=== PATIENT | male | born 1960 | race Caucasian/White ===

== ENCOUNTER → 2016-10-26 | Outpatient (CLI) | payer BC | END | disposition home or self-care (01) | LOC: LABWHC1 15:22 | PROVIDERS: ATTEND Family Medicine | DX: R10.84 Generalized abdominal pain (principal); R53.83 Other fatigue; N40.0 Benign prostatic hyperplasia without lower urinary tract symptoms; E03.8 Other specified hypothyroidism; H93.19 Tinnitus, unspecified ear | CPT/HCPCS: 36415; 84439; 84443; 84481 ==

== ENCOUNTER → 2017-03-23 | Outpatient (CLI) | payer BC ==
[2017-03-23 14:48] LABS: Basophils # (A) 0.1 k/uL (0-0.2); Basophils % (A) 1 %; CH 29.6; CHCM 34.5; Eosinophils # (A) 0.1 k/uL (0-0.7); Eosinophils % (A) 1 %; HCT 46.6 % (39.0-53.0); HDW 2.33; HGB 15.7 gm/dL (13.0-17.5); Luc # (Auto) 0.12; Luc % (Auto) 1; Lymphocytes # (A) 1.3 k/uL (1.0-4.8); Lymphocytes % (A) 14 %; MCH 29.1 pg (25.0-35.0); MCHC 33.7 g/dL (31.0-37.0); MCV 86.2 fL (80.0-100.0); Mean Platelet Volume 7.9; Monocytes # (A) 0.5 k/uL (0-1.0); Monocytes % (A) 5 %; Neutrophils # (A) 6.9 k/uL (1.3-7.7); Neutrophils % (A) 78 %; RDW 14.2 % (11.5-15.5); WBC 8.9 k/uL (3.8-10.6); WBC (Perox) 8.53
[2017-03-23 15:02] LABS: ALT 41 U/L (21-72); AST 29 U/L (17-59); Alkaline Phosphatase 67 U/L (38-126); Anion Gap 9 mmol/L; Blood Urea Nitrogen 20 mg/dL (9-20); Calcium 9.9 mg/dL (8.4-10.2); Carbon Dioxide 29 mmol/L (22-30); Chloride 103 mmol/L (98-107); Glucose 88 mg/dL (74-99); Non-African American GFR(MDRD) >60 (>60 ml/min/1.73 sqM); Potassium 4.7 mmol/L (3.5-5.1); Sodium 141 mmol/L (137-145); Total Bilirubin 0.9 mg/dL (0.2-1.3); Total Protein 7.2 g/dL (6.3-8.2)
[2017-03-23 20:45] LABS: Hemoglobin A1C 5.7 % (4.2-6.1)
[2017-03-24 05:57] LABS: EBV - EA (IgG) <5.0 U/mL (<9.0); EBV - EBNA (IgG) 37.8 U/mL (<18.0); EBV - VCA IgM <10.0 U/mL (<36.0)
== END | disposition home or self-care (01) ==
LOC: LABWHC1 13:42
PROVIDERS: ATTEND Family Medicine
DX: N40.0 Benign prostatic hyperplasia without lower urinary tract symptoms (principal); R10.84 Generalized abdominal pain; R53.83 Other fatigue; E03.8 Other specified hypothyroidism; H93.19 Tinnitus, unspecified ear; E72.12 Methylenetetrahydrofolate reductase deficiency; E53.9 Vitamin B deficiency, unspecified
CPT/HCPCS: 36415; 80053; 82306; 83036; 84439; 84443; 84481; 85025; 86141; 86663; 86664; 86665

== ENCOUNTER → 2018-08-24 | Outpatient (CLI) | payer BC ==
--- NOTE | 2018-08-26 17:07 | MR ---
EXAMINATION TYPE: MR brain and iac wo/w con DATE OF EXAM: 08/24/2018 COMPARISON: NONE HISTORY: Jason Hearing loss TECHNIQUE: Multiplanar, multisequence images of the brain and brainstem including internal auditory canals are a ll performed without and with IV contrast, utilizing 10 mL intravenous Gadavist . FINDINGS: Diffusion weighted images demonstrate no evidence of a recent infarct or other diffusion ab normality. There is no worrisome extra-axial fluid collection or significant white matter changes. T here is mild ventricular and sulcal prominence consistent with mild to minimal diffuse age-related ce rebral atrophy. Midline structures demonstrate normal morphology. The craniocervical junction appears within normal limits. Post contrast images demonstrate no abnormal enhancement. The dural venous sinuses appear pa tent. The visualized sinuses are clear and the globes are intact. Nasal septum is slightly deviated t o right of midline. No suspicious fluid signal is seen in mastoid air cells bilaterally. Severe low cochlear complexes ar e symmetric and felt within normal limits. No suspicious enhancing cerebellopontine angle mass is gilma ntified bilaterally. IMPRESSION: No significant finding is seen to account for patient's symptoms of bilateral hearing los s.
== END | disposition home or self-care (01) ==
LOC: RADMRIMAIN 13:09
PROVIDERS: ATTEND Family Medicine
DX: H91.90 Unspecified hearing loss, unspecified ear (principal)
CPT/HCPCS: 70553; A9585

== ENCOUNTER → 2019-05-16 | Outpatient (CLI) | payer BC ==
--- NOTE | 2019-05-16 08:27 | US ---
EXAMINATION TYPE: US prostate transrectal DATE OF EXAM: 05/16/2019 COMPARISON: NONE CLINICAL HISTORY: R97.20 elevated PSA. Elevated PSA, weak, restricted urine stream This examination was performed using the transrectal probe. EXAM MEASUREMENTS: Gland Size: 5.4 x 3.3 x 5.1cm Volume: 47.6ml Predicted PSA: 5.7 Actual PSA (if available):7.0 From July 2018 Enlarged, mildly heterogeneous gland without any definite lesions seen at this time. Initial images show seminal vesicles appear within normal limits. Prostate gland is heterogeneous yuri earance and enlarged in size without suspicious hypoechoic nodule identified. IMPRESSION: Findings consistent with BPH as detailed above. One may consider ultrasound-guided rando m sampling or prostate MRI due to actual PSA being slightly out of proportion to predicted PSA based on gland size. Advise urology referral to assess. Predicted PSA = volume x 0.12 ng/ml Calculated Volume = 0.5236 x L x W x H
== END | disposition home or self-care (01) ==
LOC: RADUSWWP 07:24
PROVIDERS: ATTEND Family Medicine
DX: R97.20 Elevated prostate specific antigen [PSA] (principal)
CPT/HCPCS: 76872

== ENCOUNTER 2021-02-02 21:46 | Emergency (ER) | payer BC ==
[2021-02-02 22:04] VITALS: PULSE 62; TEMP 98.2
--- NOTE | 2021-02-02 22:38 | ED ---
Skin/Abscess/FB HPI - General Chief complaint: Skin/Abscess/Foreign Body Stated complaint: swelling in L leg Time Seen by Provider: 02/02/21 22:15 Source: patient Mode of arrival: ambulatory Limitations: no limitations - History of Present Illness Initial comments: 60-year-old male presents to the emergency department with a chief complaint of left redness and swelling. Patient reports he believes that he may have been bitten by an insect earlier today which may have caused him to be developing swelling in the left ankle. Patient reports he denies any injuries to the ankle bur states there is swelling in the region and is going slight approximately. States she also developed overlying cellulitic skin changes in that not have been progressing to the calf. He denies any fevers or chills. Patient is concerned for a blood clot. No history of blood clots. - Related Data Home Medications Medication Instructions Recorded Confirmed diphenhydrAMINE HCL [Benadryl] 25 mg PO ONCE PRN 02/02/21 02/02/21 Allergies Allergy/AdvReac Type Severity Reaction Status Date / Time No Known Allergies Allergy Verified 02/02/21 22:45 Review of Systems ROS Statement: Those systems with pertinent positive or pertinent negative responses have been documented in the HPI. ROS Other: All systems not noted in ROS Statement are negative. Past Medical History Additional Past Medical History / Comment(s): DIFFICULTY SWALLOWING, STOMACH IRRITATION History of Any Multi-Drug Resistant Organisms: None Reported Past Surgical History: Joint Replacement, Orthopedic Surgery Additional Past Surgical History / Comment(s): CLARA JOINT KNEE, RETINAL DETACHMENT SX RIGHT EYE, rt shoulder Past Anesthesia/Blood Transfusion Reactions: No Reported Reaction Past Psychological History: No Psychological Hx Reported Smoking Status: Never smoker Past Alcohol Use History: Occasional Past Drug Use History: None Reported - Past Family History Sister(s) Family Medical History: Cancer Additional Family Medical History / Comment(s): TYROID General Exam Limitations: no limitations General appearance: alert, in no apparent distress Head exam: Present: atraumatic, normocephalic, normal inspection Eye exam: Present: normal appearance, PERRL, EOMI Pupils: Present: normal accommodation ENT exam: Present: normal exam, normal oropharynx, mucous membranes moist Neck exam: Present: normal inspection, full ROM. Absent: tenderness, lymphadenopathy Respiratory exam: Present: normal lung sounds bilaterally. Absent: respiratory distress Cardiovascular Exam: Present: regular rate, normal rhythm, normal heart sounds. Absent: systolic murmur Extremities exam: Present: full ROM (Full range of motion left ankle), tenderness (No tenderness over the ankle), normal capillary refill, pedal edema (+1 nonpitting edema left lower extremity), calf tenderness (Mild left calf tenderness), other (Palpable DP and PT bilaterally). Absent: normal inspection (Overlying cellulitic skin changes in the lateral aspect of the left ankle and the calf), joint swelling Back exam: Present: normal inspection, full ROM Neurological exam: Present: alert, altered, normal gait Psychiatric exam: Present: normal affect, normal mood Skin exam: Present: warm, dry, intact, normal color Course Vital Signs 02/02/21 22:01 Temperature 98.2 F Pulse Rate 62 Respiratory 20 Rate Blood Pressure 163/100 O2 Sat by Pulse 98 Oximetry Medical Decision Making - Medical Decision Making 60-year-old male presents to the emergency department with a chief complaint of left redness and swelling. On physical examination, patient likely has cellulitis. Vital signs are within normal limits. Ultrasound is negative for DVT. Patient will be started on Keflex. Return parameters were discussed patient is an attending agreeable. Case discussed with Disposition Clinical Impression: Cellulitis Disposition: HOME SELF-CARE Condition: Stable Instructions (If sedation given, give patient instructions): Cellulitis (ED) Additional Instructions: Please return to the Emergency Department if symptoms worsen or any other co ncerns. Is patient prescribed a controlled substance at d/c from ED?: No Referrals: Randolph Coffey MD [Primary Care Provider] - 1-2 days Time of Disposition: 23:51
--- NOTE | 2021-02-02 23:38 | US ---
EXAMINATION TYPE: US venous doppler duplex LE LT DATE OF EXAM: 02/02/2021 11:30 PM COMPARISON: NONE CLINICAL HISTORY: r/o dvt. Redness and swelling. No hx of DVT. Patient does not take blood thinners. Hx left knee replacement. SIDE PERFORMED: TECHNIQUE: The lower extremity deep venous system is examined utilizing real time linear array sonog jd with graded compression, doppler sonography and color-flow sonography. VESSELS IMAGED: Common Femoral Vein Deep Femoral Vein Greater Saphenous Vein * Femoral Vein Popliteal Vein Small Saphenous Vein * Proximal Calf Veins (* superficial vessels) Left Leg: No evidence of DVT in veins imaged at this time. IMPRESSION: No sign of deep vein thrombosis in the left leg.
[2021-02-02] MEDS ORDERED: CEPHALEXIN 500MG STARTER PACK 4 CAP BTL PO STA (23:52)
[2021-02-03 00:05] VITALS: BP 150/79; RESP 18
== END 2021-02-03 00:05 | disposition home or self-care (01) ==
LOC: EC 21:46
DX: L03.116 Cellulitis of left lower limb (principal)
CPT/HCPCS: 99283; 99284

== ENCOUNTER 2021-11-20 07:22 | Day surgery (SDC) | payer BC ==
[2021-11-18 14:31] VITALS: BMI 25.7
[~2021-11-20 07:22] MED LIST: LACTATED RINGERS 1,000 ML IV SCH
[2021-11-20 07:49] VITALS: TEMP 97.4
[2021-11-20] MEDS ORDERED: LIDOCAINE 2% INJ 20 MG/ML (2 ML VIAL) ONE (08:26)
[2021-11-20] MEDS ORDERED: PROPOFOL 10 MG/ML 20 ML VIAL IV ONE (08:26)
--- NOTE | 2021-11-20 08:47 | P.PCN ---
Date of Procedure: 11/20/21 Procedure(s) Performed: Brief history: Patient is a pleasant 61-year-old white female scheduled for an elective upper endoscopy as well as colonoscopy as a part of evaluation of epigastric discomfort and change in bowel habits for the last several months duration. Procedure performed: Esophagogastroduodenoscopy with biopsy Colonoscopy with biopsy Preoperative diagnosis: Epigastric pain Change in bowel habits Anesthesia: MAC Procedure: After informed consent was obtained from the patient was brought into the endoscopy unit and IV sedation was administered by anesthesia under continuous monitoring. Initially upper endoscopy was done. The Olympus GF 160 video endoscope was inserted inserted into the mouth and esophagus intubated without any difficulty and was gradually advanced into the stomach and duodenum and carefully examined. The bulb and second part of the duodenum appeared normal. Abscesses were done from the duodenum to rule out celiac disease. The scope was then withdrawn into the stomach adequately insufflated with air and upon careful examination the antrum had mild patchy areas of erythema which was biopsied. The body, cardia and fundus appeared normal. The scope was then withdrawn into the esophagus. The GE junction was located at 40 cm to the incisors. It appea red regular with no erythema erosions or ulcerations. Rest of the esophagus appeared normal. Patient tolerated the procedure well. At this time the patient continued to remain sedation. Initial digital rectal examination was normal. Olympus CF 160 video colonoscope was then inserted into the rectum and gradually advanced to the cecum without any difficulty. Careful examination was performed as the scope was gradually being withdrawn. The prep was excellent. The cecum, ascending colon, transverse colon, descending colon, sigmoid colon and rectum appeared normal. Recommend a 3 mm sessile polyp removed by cold biopsy. Retroflexion was performed in the rectum and monitor hemorrhoids were noted. Patient tolerated the procedure well. Impression: 1. Upper endoscopy revealed mild antral gastritis but no evidence of esophagitis or peptic ulcer disease 2. Colonoscopy revealed a 3 mm rectal polyp and small internal hemorrhoids Recommendations: Findings of this examination were discussed with the patient as well as his family. He was advised to follow with the biopsy results. He can have a repeat colonoscopy in in 5 years from now because of the colon polyps .
[2021-11-20 09:14] VITALS: BP 121/71; PULSE 60; RESP 17
== END 2021-11-20 09:25 | disposition home or self-care (01) ==
LOC: ORWHC2ENDO 07:22
PROVIDERS: ATTEND Internal Medicine Gastroenterology
DX: K62.1 Rectal polyp (principal); K64.8 Other hemorrhoids; R19.4 Change in bowel habit; K21.9 Gastro-esophageal reflux disease without esophagitis; K29.50 Unspecified chronic gastritis without bleeding; R13.10 Dysphagia, unspecified; Z96.653 Presence of artificial knee joint, bilateral; Z98.890 Other specified postprocedural states
CPT/HCPCS: 88305; 45380; 43239; J2704; J2001

== ENCOUNTER → 2022-11-01 | Outpatient (CLI) | payer BC ==
--- NOTE | 2022-11-01 19:48 | CT ---
EXAMINATION TYPE: CT abdomen pelvis w con DATE OF EXAM: 11/01/2022 COMPARISON: None HISTORY: Generalized abdominal pain CT DLP: 1459 mGycm CONTRAST: CT scan of the abdomen and pelvis is performed with Oral Contrast and with IV Contrast, patient injec estuardo with 100cc mL of Isovue 300. FINDINGS: LUNG BASES-: No visible nodule. No infiltrate. LIVER/GB: No calcified gallstones. No space occupying hepatic lesion. Biliary tree is of normal ca liber. PANCREAS: No inflammation. No distinct mass. SPLEEN: No splenic enlargement. No lesion seen. ADRENALS: No nodule. No thickening. KIDNEYS/BLADDER: No hydronephrosis. No nephrolithiasis. No distinct renal mass. Urinary bladder g rossly unremarkable. BOWEL: Normal appendix. Normal bowel caliber. No inflammation. GENITAL ORGANS: No gross abnormality. LYMPH NODES: No greater than 1cm abdominal or pelvic lymph nodes are appreciated. AORTA: No significant abnormality. OSSEOUS STRUCTURES: No significant abnormality is seen. OTHER: No significant additional abnormality is seen. IMPRESSION: 1. No significant abnormality
== END | disposition home or self-care (01) ==
LOC: RADCTMAIN 15:50
PROVIDERS: ATTEND Family Medicine
DX: R10.84 Generalized abdominal pain (principal)
CPT/HCPCS: 74177; Q9967

== ENCOUNTER → 2022-11-20 | Outpatient (CLI) | payer BC ==
--- NOTE | 2022-11-20 16:09 | MR ---
EXAMINATION TYPE: MR Prostate wo/w con DATE OF EXAM: 11/20/2022 8:53 AM COMPARISON: CT 11/11/2022. CLINICAL INDICATION:Male, 62 years old with history of R97.20; TECHNIQUE: Multi-planar, multi-sequence imaging of the pelvis is performed prior to and following the uncomplicated administration of bolus intravenous gadolinium. CONTRAST: 8 Gadavist Interpretive Criteria: PI-RADS v2.1 SERUM PSA: 8.4 on 10/07/2022. SURGICAL PATHOLOGY: Benign biopsy 06/22/2016 FINDINGS: Prostatic dimensions: 5.5 x 4.0 x 5.5 cm. Ellipsoid Volume:63.36 (PSA density=0.13 ng/mL/mL) CENTRAL GLAND (Central and Transition Zones/CZ+TZ): Small focus of restricted diffusion within the right central gland mid gland measuring 7 x 5 mm. The lesion is in close proximity to the prostatic urethra. (PI-RADS 4) PERIPHERAL ZONE (PZ): No evidence of masslike abnormality, or localized perfusional hypervascularity, to further suggest a focus of clinically significant prostate cancer. (PI-RADS 2) SEMINAL VESICLES (SV): Symmetric and unremarkable. PERIPROSTATIC TISSUES: Unremarkable. LYMPH NODES: Right common iliac lymph node may be present measuring 7 mm in short axis series 201 image 30. REMAINING PELVIS: Bladder wall is within normal limits given distention. No abnormal free or organized intrapelvic fluid collection. No pathologic bowel dilation or mural thickening. OSSEOUS STRUCTURES: No suspicious osseous abnormality. There is a moderate right hip joint effusion. There is suspected a nterior superior labral tear on the right. IMPRESSION: 1. PI-RADS score: 4 lesion right mid central gland measuring 7 x 5 mm. The lesion is in close proximi ty to the prostatic urethra. 2. Moderate BPH, estimated gland volume 63.36 mL. 3. Single prominent right common iliac lymph node. 4.Moderate right hip joint effusion with suspected underlying labral pathology. Consider dedicated MRI right hip arthrogram for complete evaluation.
== END | disposition home or self-care (01) ==
LOC: RADMRIMAIN 07:36
PROVIDERS: ATTEND Urology
DX: N40.0 Benign prostatic hyperplasia without lower urinary tract symptoms (principal); M25.451 Effusion, right hip; N28.9 Disorder of kidney and ureter, unspecified; R97.20 Elevated prostate specific antigen [PSA]
CPT/HCPCS: 72197; A9585

== ENCOUNTER → 2022-12-13 | Outpatient (CLI) | payer BC ==
[2022-12-13 15:45] LABS: Basophils # (A) 0.04 X 10*3/uL (0.00-0.10); Basophils % (A) 0.8 %; Eosinophils # (A) 0.06 X 10*3/uL (0.04-0.35); Eosinophils % (A) 1.2 %; HCT 45.5 % (39.6-50.0); Immature Grans, Automated 0.2 %; Lymphocytes # (A) 1.54 X 10*3/uL (0.90-5.00); Lymphocytes % (A) 30.2 %; MCH 28.6 pg (27.0-32.0); MCV 86.7 fL (80.0-97.0); Mean Platelet Volume 10.4 fL (9.5-12.2); Monocytes % (A) 9.8 %; NRBC Per 100 WBC 0 /100 WBCS (0.0-0.0); Neutrophils # (A) 2.95 X 10*3/uL (1.80-7.70); Neutrophils % (A) 57.8 %; Platelet Count 249 X 10*3/uL (140-440); RBC 5.25 X 10*6/uL (4.40-5.60); RDW 13.1 % (11.5-14.5)
== END | disposition home or self-care (01) ==
LOC: LABPAT 10:30
PROVIDERS: ATTEND Urology
DX: Z01.812 Encounter for preprocedural laboratory examination (principal); R97.20 Elevated prostate specific antigen [PSA]
CPT/HCPCS: 85025

== ENCOUNTER 2022-12-16 15:05 | Day surgery (SDC) | payer BC ==
[2022-12-13 15:50] VITALS: BMI 25.0
--- NOTE | 2022-12-15 22:24 | P.GSHP ---
History of Present Illness H&P Date: 12/15/22 Chief Complaint: Elevated PSA level The patient is a 62-year-old white male with no family history of prostate cancer. His PSA level has been persistently elevated. He underwent a prostate ultrasound with biopsies in 2015, showing no evidence of malignancy. The prostate volume at that time was 42 mL. The most recent PSA level was 8.40 in September 2022. MRI of the prostate revealed a prostate volume of 63.4 mL, with a PI-RADS 4 lesion involving the right central zone. Past Medical History Additional Past Medical History / Comment(s): enlarged prostate, elevated psa, states lesion on prostate. History of Any Multi-Drug Resistant Organisms: None Reported Past Surgical History: Joint Replacement, Orthopedic Surgery Additional Past Surgical History / Comment(s): BILAT TKA, RETINAL DETACHMENT SX RIGHT EYE, rt shoulder SX, COLONOSCOPY Past Anesthesia/Blood Transfusion Reactions: No Reported Reaction Past Psychological History: No Psychological Hx Reported Smoking Status: Never smoker Past Alcohol Use History: Occasional Past Drug Use History: None Reported - Past Family History Sister(s) Family Medical History: Cancer Additional Family Medical History / Comment(s): THYROID CANCER Medications and Allergies Home Medications Medication Instructions Recorded Confirmed Type Multivitamins, Thera [Multivitamin 1 tab PO DAILY 12/13/22 12/13/22 History (formulary)] [place]-3/Dha/Epa/Fish Oil [Fish Oil 1 each PO DAILY 12/13/22 12/13/22 History 1,000 mg Softgel] Vitamin B (Unknown Dose) 1 dose PO DAILY 12/13/22 History Vitamin D (Unknown Dose) 1 dose PO DAILY 12/13/22 History Allergies Allergy/AdvReac Type Severity Reaction Status Date / Time No Known Allergies Allergy Verified 12/13/22 15:50 Surgical - Exam - General well developed, well nourished, no distress - Neck no masses, trachea midline - Respiratory normal respiratory effort - Abdomen Abdomen: soft, non tender, no guarding, no rigid, no rebound - Genitourinary normal penis with no external lesions, testicles non-tender - Rectum Rectum: normal sphincter tone, no masses, other (Prostate moderately enlarged but smooth) - Psychiatric oriented to time, oriented to person, oriented to place, speech is normal, memory intact Assessment and Plan (1) Elevated prostate specific antigen [PSA] Status: Acute Code(s): R97.20 - ELEVATED PROSTATE SPECIFIC ANTIGEN [PSA] SNOMED Code(s): 645307316 Plan: MRI ultrasound fusion biopsy of the prostate. The procedure then reviewed in detail with the patient. He is aware of potential risks, which include anesthesia, bleeding, and infection.
[~2022-12-16 15:05] MED LIST changes: +DEXAMETHASONE SOD PHOSPHATE 4 MG/ML 1 ML VIAL IV ONE; +GENTAMICIN 120 MG in SODIUM CHLORIDE 0.9% 100 ML IVPB PRN; +HYDROmorphone 0.5 MG/0.5 ML SYRINGE IVP PRN; +LIDOCAINE 1% (10MG/ML) FOR IV START INTRADERMA PRN; +MIDAZOLAM 2 MG/2 ML VIAL IV PRN; +ONDANSETRON 4 MG/2 ML VIAL IVP ONE
[2022-12-16 15:49] VITALS: TEMP 97.1
[2022-12-16] MEDS ORDERED: MIDAZOLAM 2 MG/2 ML VIAL IVP ONE (16:10)
[2022-12-16] MEDS ORDERED: PROPOFOL 10 MG/ML 20 ML VIAL IV ONE (16:36)
[2022-12-16] MEDS ORDERED: fentaNYL (PF) 50 MCG/ML 2 ML AMP ONE (16:36)
[2022-12-16] MEDS ORDERED: MIDAZOLAM 2 MG/2 ML VIAL ONE (16:36)
--- NOTE | 2022-12-16 17:15 | P.OP ---
Date of Procedure: 12/16/22 Preoperative Diagnosis: Elevated PSA Postoperative Diagnosis: Same Procedure(s) Performed: MRI US fusion biopsies of the prostate Anesthesia: MAC Surgeon: Daryl Dejesus Estimated Blood Loss (ml): 5 IV fluids (ml): 500 Pathology: other (Prostate biopsies) Condition: stable Disposition: PACU Indications for Procedure: The patient is a 62-year-old white male with no family history of prostate cancer. His PSA level has been persistently elevated. He underwent a prostate ultrasound with biopsies in 2015, showing no evidence of malignancy. The prostate volume at that time was 42 mL. The most recent PSA level was 8.40 in September 2022. MRI of the prostate revealed a prostate volume of 63.4 mL, with a PI-RADS 4 lesion involving the right central zone. Operative Findings: Adequate biopsies obtained from target lesion, in addition to 12 template biopsies. Description of Procedure: The patient was taken to the operating room and placed in the left lateral decubitus position. The [employer] transrectal ultrasound probe was placed intrarectally. It was then placed within the stand of the ME911 MRI/TRUS Fusion for Prostate Biopsy system. The prostate was imaged in both the axial and sagittal planes, revealing a prostate volume of 64 mL. Using the Biopty gun, 3 biopsies were obtained from the target lesion in the right central zone. The remaining 12 biopsies of the peripheral zone were obtained utilizing a standard template. Once the procedure was completed, the ultrasound probe was removed. The patient tolerated the procedure well was taken to the recovery room stable condition.
[2022-12-16 17:44] VITALS: BP 122/79; PULSE 64; RESP 18
== END 2022-12-16 17:59 | disposition home or self-care (01) ==
LOC: OR 15:05
PROVIDERS: ATTEND Urology
DX: N41.0 Acute prostatitis (principal); Z96.653 Presence of artificial knee joint, bilateral; Z86.59 Personal history of other mental and behavioral disorders; Z80.8 Family history of malignant neoplasm of other organs or systems; Z79.899 Other long term (current) drug therapy
CPT/HCPCS: 55700; 88344; 88342; 88305; 88341; J2250; J1100; J0690; J2405; J3010; J1580; J2704

== ENCOUNTER → 2024-06-27 | Outpatient (CLI) | payer BC ==
[2024-06-27 15:19] LABS: Basophils # (A) 0.03 X 10*3/uL (0.00-0.10); Basophils % (A) 0.5 %; Eosinophils # (A) 0.08 X 10*3/uL (0.04-0.35); Eosinophils % (A) 1.4 %; HCT 46.1 % (39.6-50.0); HGB 15.2 g/dL (13.0-17.0); Lymphocytes % (A) 27.1 %; MCH 27.8 pg (27.0-32.0); MCV 84.3 FL (80.0-97.0); Mean Platelet Volume 10.6 FL (9.5-12.2); Monocytes # (A) 0.44 X 10*3/uL (0.20-1.00); NRBC Per 100 WBC 0 X 10*3/uL (0.00-0.01); Neutrophils # (A) 3.44 X 10*3/uL (1.80-7.70); Neutrophils % (A) 62.3 %; Platelet Count 255 X 10*3/uL (140-440); RBC 5.47 X 10*6/uL (4.40-5.60); RDW 13.3 % (11.5-14.5); WBC 5.53 X 10*3/uL (4.50-10.00)
[2024-06-27 15:55] LABS: ALT 24 U/L (10-49); AST 26 U/L (14-35); Albumin 4.7 g/dL (3.8-4.9); Albumin/Globulin Ratio 1.88 Ratio (1.60-3.17); Alkaline Phosphatase 74 U/L (41-126); Blood Urea Nitrogen 16.2 mg/dL (9.0-27.0); Calcium 9.6 mg/dL (8.7-10.3); Chloride 103 mmol/L (96-109); Chol/HDL Ratio 4.31 Ratio; Estradiol 31.9 pg/mL; Ferritin 86.9 ng/mL (22.0-322.0); Globulin 2.5 g/dL (1.6-3.3); Glucose 103 mg/dL (70-110); LDL Cholesterol,Calculated 160.6 mg/dL (0.0-131.0); Sodium 141 mmol/L (135-145); T4, Free (Free Thyroxine) 1.07 ng/dL (0.80-1.80); Total Bilirubin 0.8 mg/dL (0.3-1.2); Total Protein 7.2 g/dL (6.2-8.2)
[2024-06-27 16:41] LABS: Gliadin AB IgA, Deaminated Negative (Negative); Gliadin AB IgG, Deaminated Negative (Negative); Gliadin AB IgG, Unit <0.4 U/mL
[2024-06-27 18:55] LABS: Clam IgE <0.10 kU/L; Codfish IgE <0.10 kU/L; Egg White IgE <0.10 kU/L; Peanut IgE <0.10 kU/L; Scallop IgE <0.10 kU/L; Shrimp IgE <0.10 kU/L; Soybean IgE <0.10 kU/L; Walnut IgE (Food) <0.10 kU/L
[2024-06-27 19:56] LABS: DHEA Sulfate 99.6 UG/DL (34.5-568.9); Insulin Level 3.3 mIU/mL (3.0-25.0)
== END | disposition home or self-care (01) ==
LOC: LABWHC1 12:33
PROVIDERS: ATTEND Family Medicine
DX: N40.0 Benign prostatic hyperplasia without lower urinary tract symptoms (principal); E72.12 Methylenetetrahydrofolate reductase deficiency; E53.9 Vitamin B deficiency, unspecified; E03.8 Other specified hypothyroidism; H93.19 Tinnitus, unspecified ear; R10.84 Generalized abdominal pain; R53.83 Other fatigue
CPT/HCPCS: 36415; 80053; 80061; 82306; 82627; 82642; 82670; 82728; 82785; 83036; 83516; 83525; 84270; 84402; 84403; 84439; 84443; 84481; 85025; 86003; 86141

== ENCOUNTER → 2024-11-20 | Outpatient (CLI) | payer BC ==
--- NOTE | 2024-11-20 08:18 | MR ---
EXAMINATION TYPE: MR Prostate wo/w con DATE OF EXAM: 11/20/2024 COMPARISON: Prior prostate MRI November 20, 2022 INDICATION: Prostate cancer. PSA: 7.87 ng/ml on September 25, 2023 Recent Biopsy and Date: 03/18/2023 Pathology Report (If Applicable): Right lateral base lesion score 3+3 = 6 measuring 1.5 mm in length involving 25% of specimen TECHNIQUE: Examination was performed using a 3T MRI without an endorectal coil. Multiparametric imaging was perf ormed with T2 mutliplanar sequences, axial diffusion weighted imaging and dynamic contrast enhanced i maging, utilizing 9 mL intravenous Gadobutrol gadolinium contrast. FINDINGS: PROSTATE VOLUME: 5.1 cm SI x 4.1 cm AP x 5.5 cm LR Vol= 60.2 cc PSA DENSITY: 0.13 ng/ml/cc Enlarged prostate consistent with BPH is redemonstrated. Wedge-shaped areas of slightly diminished si gnal on ADC mapping are seen bilaterally in the peripheral zone. No areas of marked diminished signal are identified. Transition zone shows bilateral nodules. No new suspicious T2 hypointense areas. No areas of suspicious increased signal on diffusion-weighted imaging on current study. Seminal vesicles are unremarkable. Urinary bladder is within normal limits. No destructive osseous le sions. IMPRESSION: Enlarged prostate is redemonstrated. A focus of new clinically significant cancer is not identified on today's study. Highest Assessment Category: 2 MRI Stage: T1c N0 M0 based on review of pelvic images. Assessment Categories: 1 ? Very low (clinically significant cancer is highly unlikely to be present) 2 ? Low (clinically significant cancer is unlikely to be present) 3 ? Intermediate (the presence of clinically significant cancer is equivocal) 4 ? High (clinically significant cancer is likely to be present) 5 ? Very high (clinically significant cancer is highly likely to be present) [facility], , 11/20/2024 8:15 AM
== END | disposition home or self-care (01) ==
LOC: RADMRIMAIN 06:36
PROVIDERS: ATTEND Urology
DX: C61 Malignant neoplasm of prostate (principal); N40.0 Benign prostatic hyperplasia without lower urinary tract symptoms
CPT/HCPCS: 72197; A9585